=== PATIENT | female | born 1995 | race Caucasian/White ===

== ENCOUNTER 2020-09-30 15:29 | Outpatient (CLI) | payer OTHER, SELFPAY ==
[2020-09-30 16:00] LABS: Hematocrit 43.1 % (37.0-47.0); Hemoglobin 14.2 g/dL (12.0-15.0)
== END 2020-09-30 15:30 | disposition home or self-care (01) ==
LOC: ANHSURGERY 15:34
PROVIDERS: PCP Family Medicine; Visit Provider Obstetrics & Gynecology
DX: Z01.812 Encounter for preprocedural laboratory examination (principal); N92.6 Irregular menstruation, unspecified
CPT/HCPCS: 36415; 85014; 85018

== ENCOUNTER 2020-10-03 01:34 | Day surgery (SDC) | payer OTHER, SELFPAY ==
[2020-09-29 09:41] VITALS: BMI 27.4
--- NOTE | 2020-09-30 10:51 | P.HP_ITS ---
H&P: HPI History of Present Illness Date/Time: 09/30/20 10:51 this patient is a 25-year-old 2 para 2 who is admitted for permanent sterilization, hysteroscopy, dilatation curettage, and the nerve ablation. She desires permanent and irreversible sterilization. She has had heavy periods and desires ablation. Risks, benefits, per minutes were all reviewed. Chief Complaint: sterilization and bleeding Review of Systems Review of Systems: All systems reviewed & are unremarkable except as noted in HPI and below [facility] Social History Social History Smoking status: Never smoker Alcohol intake: current Substance use: never Substance use type: does not use Spiritual care concerns: No Meds Home Medications and Allergies Home Medications Medication Instructions Recorded Confirmed Type norgestimate-ethinyl estradiol 1 tablet PO DAILY 09/29/20 09/29/20 History [Estarylla] Allergies Allergy/AdvReac Type Severity Reaction Status Date / Time citric acid Allergy Unknown Rash Verified 09/29/20 09:40 latex Allergy Unknown Rash Verified 09/29/20 09:40 Exam Const: General: no acute distress Eyes: General: appearance normal, both eyes and all related structures Neck: Neck: supple and no JVD Thyroid: thyroid normal Resp: Effort & Inspection: normal respiratory effort Auscultation: clear to auscultation bilaterally Cardio: Rate: regular rate Rhythm: regular rhythm GI: Inspection: non-distended GI Palp: Yes Soft to palpation, No Tenderness to palpation present (GI) and No Guarding due to palpation present (GI) Auscultation: normal bowel sounds : General: Yes bladder normal to palpation External Female Exam: normal external appearance Speculum Exam - Vagina: normal vaginal discharge and No vaginal bleeding Speculum Exam - Cervix: nontender Bimanual exam- vagina & uterus: bladder normal to palpation and No Cervical tenderness present OB/external & speculum: No vaginal bleeding Skin: General skin exam: no rashes or lesions noted Extrem: General: normal to inspection and no edema Psych: Mental Status: mental status grossly normal Affect: normal affect Assessment and Plan Additional Plan Impression: Desires sterilization/ bleeding refractory to medical therapy Plan: Laparoscopic tubal ligation / hysteroscopy/ dilatation curettage/ Min nerve L ablation
[2020-10-03] VITALS (8 sets, daily range): BP systolic 118–161; BP diastolic 79–101; PULSE 56–96; RESP 12–20; TEMP 36.4–36.7; O2SAT 94–100
--- NOTE | 2020-10-03 06:02 | WPDHPUPDATE1 ---
History and Physical Update Update Date/Time: 10/03/20 06:02 History and Physical has been reviewed, including an updated exam of the patient. There are NO changes in the patient's condition. Risks, benefits, and alternatives have been discussed and questions answered. Patient agrees to proceed with procedure.
[2020-10-03] MEDS: ACETAMINOPHEN 500 MG TABLET 1000 MG PO (11:19)
[2020-10-03] MEDS: KETOROLAC 15 MG/ML VIAL (*BKC) IV PUSH (11:20)
[2020-10-03] MEDS: LACTATED RINGERS 1,000 ML 30 ML IV CONT (11:21)
--- NOTE | 2020-10-03 12:05 | WPDANESEPPF ---
Anes - Initial Pre Proc Eval Procedure: Operation Date: 10/03/20 12:45 Proposed Procedures p Laparoscopic Bilateral Tubal Sterilization with Fallopian Rings - Kun Banda MD s Hysteroscopy, Dilation and Curettage, Concepcion Endometrial Ablation - Kun Banda MD Date/Time: 10/03/20 12:05 Surgeon: Kun Banda MD Pre Op Diagnosis: desires sterilization, irregular bleeding Patient Data Age: 25 Gender: F Height: 5 ft 4 in Weight: 73.5 kg Last Vital Signs Temp 97.6 F 10/03/20 10:55 Pulse 96 10/03/20 10:55 Resp 20 10/03/20 10:55 BP 143/91 H 10/03/20 10:55 Pulse Ox 100 10/03/20 10:55 Allergies Allergy/AdvReac Type Severity Reaction Status Date / Time citric acid Allergy Unknown Rash Verified 10/03/20 11:35 latex Allergy Unknown Rash Verified 10/03/20 11:35 Home Medications Medication Instructions Recorded Confirmed Type norgestimate-ethinyl estradiol 1 tablet PO DAILY 09/29/20 09/29/20 History [Estarylla] hydrocodone-acetaminophen 1 tablet PO Q6H PRN #20 tablet 10/03/20 Rx Patient hx anesthesia problems: none Family hx anesthesia problems: none PMFSH Past Medical History Medical History (Updated 10/03/20 @ 12:05 by Karel Jennings MD) Migraine Social History Social History Smoking status: Never smoker Alcohol intake: current Alcohol use details: 2 DRINKS/MONTH Substance use: never Substance use type: does not use Living arrangements: with family Spiritual care concerns: No Anes - Eval Final PreProcedure Day of Procedure 10/03/20 12:05 Patient weight: normal Heart: regular rate and rhythm Lungs: clear to auscultation Airway: Mallampati scale Last oral intake: >/= 8 hours ASA classification: II Emergent: no Anesthetic plan: proceed Anesthesia type and monitoring: general ETT and standard monitoring Informed Consent: The patient's anesthetic plan and its attendant risks and benefits were discussed with the patient/family/POA. Questions were solicited and answers provided to the satisfaction of the patient/family/POA.
--- NOTE | 2020-10-03 13:24 | P.OP_ITS ---
Procedure Note - Detailed Date of procedure: 10/03/20 Pre-op diagnosis: desires sterilization, irregular bleeding Surgeon: Kun Banda MD Postop diagnosis: Desires sterilization/irregular bleeding Procedure: Laparoscopic bilateral tubal ligation via silastic rings. Hysteroscopy/dilatation curettage/Min nerve ablation Anesthesia: General endotracheal Complications: None Findings: Normal-appearing ovaries uterus and tube sh Description of procedure: The patient was prepped and draped in the normal sterile fashion placed in the dorsal lithotomy position. Under excellent general endotracheal anesthesia weighted speculum was placed in the posterior fornix vagina. Anterior lip of the cervix was grasped with a single-tooth tenaculum and the Man's cannula inserted to the cervix and attached. This will be used later for uterine manipulation. The bladder was drained of clear urine. The gloves were changed. An infraumbilical incision made and the Veress needle passed in the abdomen. Abdomen filled with CO2 gas to 15mm min the 8mm trocar advanced in the abdomen. The downside visualized no injury seen. The patient placed in Trendelenburg and a suprapubic incision made. The 8mm trocar advanced in the abdomen under direct visualization assuring no injury. The right fallopian tube was grasped at its midportion and a good knuckle of tube formed with excellent blanching. In like fashion the left fallopian tube was grabbed at its midportion and a good knuckle of tube formed with good blanching. Photo documentation was undertaken. The lower site removed after gas removed from the abdomen. The incisions closed with 4 O Monocryl and glue. Attention was turned to the hysteroscopic portion the procedure. The uterus sounded to 8cm. Serial dilatation with fragmented dilators performed followed by passage of the 5mm visualizing hysteroscope. Normal saline was used as v isualizing medium. Thick irregular endometrial tissue could be seen as well as the fallopian tube ostia bilaterally but no evidence of pathology. The uterus was then scraped over the entire 360? until a good grating sound was heard. The enzo instrument was placed in the uterus and burned for 120seconds. The instruments removed. The hysteroscope was placed in the uterus and a good burn was noted. The patient was awakened after instruments removed. All sponge, needle, instrument counts were correct. There were no immediate complications
[2020-10-03] MEDS: fentaNYL CITRATE INJ (*CRX) 100 MCG/2 ML VIAL 25 MCG IV PUSH ×4 (13:43→13:52)
[2020-10-03] MEDS: oxyCODONE HCL (*CRX) 5 MG TAB IR PO (14:57)
--- NOTE | 2020-10-03 18:03 | SUR.PHASEII ---
1525; PT AWAKE AND ALERT. USING CELL PHONE. TEXTING. PT STATES PAIN/CRAMPING 6-01/24. PT STATES SHE WANTS TO GO HOME AND GO TO BED.
== END 2020-10-03 15:55 | disposition home or self-care (01) ==
PROVIDERS: PCP Family Medicine; Visit Provider Obstetrics & Gynecology
PROC: (CPT 58671; principal; 2020-10-03 12:45)
PROC: 0U5B8ZZ Destruction of Endometrium, Via Natural or Artificial Opening Endoscopic (ICD-10-PCS; CPT 58563; 2020-10-03 12:45)
DX: Z30.2 Encounter for sterilization (principal); N92.6 Irregular menstruation, unspecified
CPT/HCPCS: 58671; 58563; 36415; 85014; 85018; 88305; A4264; A9270; J0330; J1100; J1885; J2250; J2405; J2704; J3010; J7030; J7120